=== PATIENT | male | born 1985 | race Caucasian/White ===

== ENCOUNTER 2017-12-05 05:07 | Observation (INO) | payer MEDICAID, OTHER ==
[2017-12-05] MEDS ORDERED: NS 1,000 ML IV ONE (05:25)
[2017-12-05] MEDS ORDERED: ONDANSETRON 4 MG/2 ML VIAL IVP ONE (05:25)
--- NOTE | 2017-12-05 05:26 | EDPHY ---
H & P Time Seen by Provider: 12/05/17 05:23 HPI/ROS: Chief Complaint: Abdominal pain HPI: 32-year-old male began having central abdominal pain about midnight. He has been getting progressively worse over the course the last few hours. He is having nausea and increasing vomiting as well. He has not have a history of similar pain in the past. Pain is about an 8/10 right now. Is constant. Is worse when he moves around. He has to walk kind of hunched over. No fevers or chills. No coffee grounds or blood in his emesis. No constipation, last bowel movement was yesterday. Does not have a history of abdominal surgeries. ROS: 10 point Review of Systems is negative except as noted in the HPI. PMH: None Social History: No smoking, no alcohol, no recreational drug use Family History: non-contributory Physical Exam: Gen: Awake, Alert, No Distress HEENT: Nose: no rhinorrhea Eyes: PERRLA, EOMI Mouth: Moist mucosa Neck: Supple, no JVD Chest: nontender, lungs clear to auscultation Heart: S1, S2 normal, no murmur Abd: Soft, patient is tenderness in the right lower quadrant with voluntary guarding Back: no CVA tenderness, no midline tenderness Ext: no edema, non-tender Skin: no rash Neuro: CN II-XII intact, Sensation grossly intact, Strength 5/5 in bilateral upper and lower extremities Constitutional: Initial Vital Signs Temperature (C) 36.5 C 12/05/17 05:25 Heart Rate 68 12/05/17 05:25 Respiratory Rate 18 12/05/17 05:25 Blood Pressure 110/55 L 12/05/17 05:25 O2 Sat (%) 99 12/05/17 05:25 O2 Delivery Mode Room Air Allergies/Adverse Reactions: Penicillins Allergy (Verified 12/05/17 05:24) Home Medications: Medication Instructions Recorded NK [No Known Home Meds] 12/05/17 Medical Decision Making - Diagnostics Imaging Results: CT scan is positive for acute appendicitis per Dr. Young. ED Course/Re-evaluation: Patient has acute appendicitis. I have paged Dr. Alva, general surgery. Patient states he has a penicillin allergy, however he said he had a rash when he was a child. Later on in life he has taken amoxicillin has had no problems with so he has been told by physicians he probably does not have an allergy but he continues to tell people this because he was told this as a child. Given this history I think is unlikely as a penicillin allergy. I am going to give him ceftriaxone here. - Data Points Laboratory Results: Laboratory Results 12/05/17 05:30 12/05/17 05:30 12/05/17 12/05/17 05:30 05:30 WBC 12.49 10^3/uL H 10^3/uL (3.80-9.50) RBC 4.80 10^6/uL 10^6/uL (4.40-6.38) Hgb 14.6 g/dL g/dL (13.7-17.5) Hct 43.2 % % (40.0-51.0) MCV 90.0 fL fL (81.5-99.8) MCH 30.4 pg pg (27.9-34.1) MCHC 33.8 g/dL g/dL (32.4-36.7) RDW 12.2 % % (11.5-15.2) Plt Count 209 10^3/uL 10^3/uL (150-400) MPV 9.6 fL fL (8.7-11.7) Neut % (Auto) 86.8 % H % (39.3-74.2) Lymph % (Auto) 6.4 % L % (15.0-45.0) [place] % (Auto) 5.6 % % (4.5-13.0) Eos % (Auto) 0.2 % L % (0.6-7.6) Baso % (Auto) 0.2 % L % (0.3-1.7) Nucleat RBC Rel Count 0.0 % % (0.0-0.2) Absolute Neuts (auto) 10.83 10^3/uL H 10^3/uL (1.70-6.50) Absolute Lymphs (auto) 0.80 10^3/uL L 10^3/uL (1.00-3.00) Absolute Monos (auto) 0.70 10^3/uL 10^3/uL (0.30-0.80) Absolute Eos (auto) 0.03 10^3/uL 10^3/uL (0.03-0.40) Absolute Basos (auto) 0.03 10^3/uL 10^3/uL (0.02-0.10) Absolute Nucleated RBC 0.00 10^3/uL 10^3/uL (0-0.01) Immature Gran % 0.8 % % (0.0-1.1) Immature Gran # 0.10 10^3/uL 10^3/uL (0.00-0.10) Sodium 143 mEq/L mEq/L (135-145) Potassium 4.4 mEq/L mEq/L (3.3-5.0) Chloride 103 mEq/L mEq/L (97-110) Carbon Dioxide 29 mEq/l mEq/l (22-31) Anion Gap 11 mEq/L mEq/L (8-16) BUN 18 mg/dL mg/dL (7-23) Creatinine 0.7 mg/dL mg/dL (0.7-1.3) Estimated GFR > 60 Glucose 128 mg/dL H mg/dL (70-100) Calcium 9.7 mg/dL mg/dL (8.5-10.4) Total Bilirubin 1.3 mg/dL mg/dL (0.1-1.4) AST 32 IU/L IU/L (17-59) ALT 40 IU/L IU/L (21-72) Alkaline Phosphatase 54 IU/L IU/L (38-126) Total Protein 8.1 g/dL g/dL (6.3-8.2) Albumin 4.8 g/dL g/dL (3.5-5.0) Medications Given: Discontinued Medications Sodium Chloride (Ns) 1,000 mls @ 0 mls/hr IV ONCE ONE; Wide Open PRN Reason: Protocol Stop: 12/05/17 05:26 Last Admin: 12/05/17 05:32 Dose: 1,000 mls Morphine Sulfate (Morphine) 4 mg IVP ONCE ONE Stop: 12/05/17 05:26 Last Admin: 12/05/17 05:35 Dose: 4 mg Ondansetron HCl (Zofran) 4 mg IVP EDNOW ONE Stop: 12/05/17 05:26 Last Admin: 12/05/17 05:34 Dose: 4 mg Departure - Departure Disposition: [facility] Inpatient Acute Clinical Impression: Acute appendicitis Condition: Fair Referrals: NONE *PRIMARY CARE P,. [Primary Care Provider] - As per Instructions
[2017-12-05] MEDS ORDERED: IOPAMIDOL (ISOVUE-300) 100 ML BTL ONE (05:37)
[2017-12-05 05:49] LABS: PLATELET COUNT 209 10^3/uL (150-400)
[2017-12-05] MEDS ORDERED: D5W 1/2 NS W/ 20 KCl/L 1,000 ML IV SCH ×2 (07:45→14:30)
[2017-12-05] MEDS ORDERED: D5W 1/2 NS 1,000 ML IV SCH (09:00)
--- NOTE | 2017-12-05 09:28 | PDGENHP ---
History and Physical - Chief Complaint abdominal pain with nausea and vomiting - History of Present Illness 32yo M, [place] town [place]. Last evening around 2300 had progressive abdominal pain with nausea and vomiting, this progressed through the night. Pain was initially periumbilical, now has changed to RLQ, is sharp and nonradiating. Better with IV narcotics. History Information - Allergies/Home Medication List Allergies/Adverse Reactions: Penicillins Allergy (Mild, Verified 12/05/17 07:26) Rash Home Medications: NK [No Known Home Meds] 12/05/17 [Last Taken Unknown] I have personally reviewed and updated: family history, medical history, social history, surgical history - Surgical History Additional surgical history: remote sinus surgery - Family History Positive for: non-pertinent - Social History Smoking Status: Never smoked Alcohol Use: Occasionally Additional social history: on his way to [place] for some ultramarathon Review of Systems Review of Systems: ROS: 10pt was reviewed & negative except for what was stated in HPI & below Physical Exam Physical Exam: Temp Pulse Resp BP Pulse Ox 36.8 C 61 15 129/70 H 97 12/05/17 08:29 12/05/17 08:29 12/05/17 08:29 12/05/17 08:29 12/05/17 08:29 Constitutional: no apparent distress, appears nourished, not in pain Eyes: PERRL, anicteric sclera, EOMI Ears, Nose, Mouth, Throat: moist mucous membranes, hearing normal, ears appear normal, no oral mucosal ulcers Cardiovascular: regular rate and rhythym, no murmur, rub, or gallop, No edema Respiratory: no respiratory distress, no rales or rhonchi, clear to auscultation Gastrointestinal: normoactive bowel sounds, no palpable masses, other (TTP in the RLQ, no rebound or guarding) Genitourinary: no bladder fullness, no bladder tenderness Skin: warm, normal color, no rashes or abrasions, no fluctuance, no induration, No mottled Musculoskeletal: full muscle strength, no muscle tenderness, normal joint ROM, no joint effusions Psychiatric: interacting appropriately, not anxious, not encephalopathic, thought process linear Lymph, Heme, Immunologic: no cervical LAD, no supraclavicular LAD Lab Data & Imaging Review 12/05/17 05:30 12/05/17 05:30 WBC 12.49 10^3/uL (3.80-9.50) H 12/05/17 05:30 RBC 4.80 10^6/uL (4.40-6.38) 12/05/17 05:30 Hgb 14.6 g/dL (13.7-17.5) 12/05/17 05:30 Hct 43.2 % (40.0-51.0) 12/05/17 05:30 MCV 90.0 fL (81.5-99.8) 12/05/17 05:30 MCH 30.4 pg (27.9-34.1) 12/05/17 05:30 MCHC 33.8 g/dL (32.4-36.7) 12/05/17 05:30 RDW 12.2 % (11.5-15.2) 12/05/17 05:30 Plt Count 209 10^3/uL (150-400) 12/05/17 05:30 MPV 9.6 fL (8.7-11.7) 12/05/17 05:30 Neut % (Auto) 86.8 % (39.3-74.2) H 12/05/17 05:30 Lymph % (Auto) 6.4 % (15.0-45.0) L 12/05/17 05:30 [place] % (Auto) 5.6 % (4.5-13.0) 12/05/17 05:30 Eos % (Auto) 0.2 % (0.6-7.6) L 12/05/17 05:30 Baso % (Auto) 0.2 % (0.3-1.7) L 12/05/17 05:30 Nucleat RBC Rel Count 0.0 % (0.0-0.2) 12/05/17 05:30 Absolute Neuts (auto) 10.83 10^3/uL (1.70-6.50) H 12/05/17 05:30 Absolute Lymphs (auto) 0.80 10^3/uL (1.00-3.00) L 12/05/17 05:30 Absolute Monos (auto) 0.70 10^3/uL (0.30-0.80) 12/05/17 05:30 Absolute Eos (auto) 0.03 10^3/uL (0.03-0.40) 12/05/17 05:30 Absolute Basos (auto) 0.03 10^3/uL (0.02-0.10) 12/05/17 05:30 Absolute Nucleated RBC 0.00 10^3/uL (0-0.01) 12/05/17 05:30 Immature Gran % 0.8 % (0.0-1.1) 12/05/17 05:30 Immature Gran # 0.10 10^3/uL (0.00-0.10) 12/05/17 05:30 Sodium 143 mEq/L (135-145) 12/05/17 05:30 Potassium 4.4 mEq/L (3.3-5.0) 12/05/17 05:30 Chloride 103 mEq/L (97-110) 12/05/17 05:30 Carbon Dioxide 29 mEq/l (22-31) 12/05/17 05:30 Anion Gap 11 mEq/L (8-16) 12/05/17 05:30 BUN 18 mg/dL (7-23) 12/05/17 05:30 Creatinine 0.7 mg/dL (0.7-1.3) 12/05/17 05:30 Estimated GFR > 60 12/05/17 05:30 Glucose 128 mg/dL (70-100) H 12/05/17 05:30 Calcium 9.7 mg/dL (8.5-10.4) 12/05/17 05:30 Total Bilirubin 1.3 mg/dL (0.1-1.4) 12/05/17 05:30 AST 32 IU/L (17-59) 12/05/17 05:30 ALT 40 IU/L (21-72) 12/05/17 05:30 Alkaline Phosphatase 54 IU/L (38-126) 12/05/17 05:30 Total Protein 8.1 g/dL (6.3-8.2) 12/05/17 05:30 Albumin 4.8 g/dL (3.5-5.0) 12/05/17 05:30 Visualized and Interpreted imaging results: Yes Interpretation: CT: acute appendicitis Assessment & Plan Assessment: Acute appendicitis (Acute) Plan: 32yo male with acute appendicitis - to OR for lap appy - abx in ED - RBA discussed
--- NOTE | 2017-12-05 09:48 | ASMTCMCOM ---
CM Note CM Note Notes: Chart reviewed. 32 year old male admitted via ED with abdominal pain, nausea and vomiting. CT reveals acute appendicitis. He is scheduled to go to OR later today. No needs anticipated at this time. CM availble should needs arise. Plan:Likely home independently. Date Signed: 12/05/2017 09:48 AM Electronically Signed By:Vicky Connelly RN
[2017-12-05] MEDS ORDERED: BUPIVACAINE 0.25% 30 ML SDV ONE (11:01)
[2017-12-05] MEDS ORDERED: EPINEPHrine 1 MG/ML INJ ONE (11:01)
[2017-12-05] MEDS ORDERED: MIDAZOLAM 2 MG/2 ML VIAL IVP ONE (13:14)
--- NOTE | 2017-12-05 13:14 | PDANEPAE ---
ANE History of Present Illness 32 year old male who presents with symptoms of acute appendicitis presents for lap appy. ANE Past Medical History - Cardiovascular History Hx Hypertension: No Hx Arrhythmias: No Hx Chest Pain: No Hx Coronary Artery / Peripheral Vascular Disease: No Hx CHF / Valvular Disease: No Hx Palpitations: No - Pulmonary History Hx COPD: No Hx Asthma/Reactive Airway Disease: No Hx Recent Upper Respiratory Infection: No Hx Oxygen in Use at Home: No Hx Sleep Apnea: No Sleep Apnea Screening Result - Last Documented: Negative - Endocrine History Hx Diabetes: No Hypothyroid: No Hyperthyroid: No Obesity: no - Renal History Hx Renal Disorders: No - Liver History Hx Hepatic Disorders: No - Neurological & Psychiatric Hx Hx Neurological and Psychiatric Disorders: No - Cancer History Hx Cancer: No - Congenital Disorder History Hx Congenital Disorders: No - GI History GERD: no Hx Gastrointestinal Disorders: No - Chronic Pain History Chronic Pain: No ANE Review of Systems Review of systems is: negative Review of Systems: - Exercise capacity Exercise capacity: >=4 METS ANE Patient History - Allergies Allergies/Adverse Reactions: gluten Allergy (Intermediate, Verified 12/05/17 10:16) Abdominal Pain Penicillins Allergy (Mild, Verified 12/05/17 07:26) Rash - Home Medications Home medications: home medication list seen and reviewed Home Medications: NK [No Known Home Meds] 12/05/17 [Last Taken Unknown] - NPO status NPO Status: no food or drink >8 hours NPO Since - Liquids (Date): 12/04/17 NPO Since - Liquids (Time): 20:00 NPO Since - Solids (Date): 12/04/17 NPO Since - Solids (Time): 20:00 - Anes Hx Anes Hx: no prior problems - Smoking Hx Smoking Status: Never smoked Marijuana use: No - Alcohol Use Alcohol Use: Occasionally - Family Anes Hx Family Anes Hx: neg - N/A ANE Labs/Vital Signs - Labs Result Diagrams: 12/05/17 05:30 12/05/17 05:30 - Vital Signs Vital Signs: reviewed preoperatively; see RN documention for details Blood Pressure: 125/83 Heart Rate: 65 Respiratory Rate: 16 O2 Sat (%): 98 Height: 177.8 cm Weight: 66.6 kg ANE Physical Exam - Airway Neck exam: FROM Mallampati Score: Class 2 Mouth exam: normal dental/mouth exam, dey - Pulmonary Pulmonary: no respiratory distress - Cardiovascular Cardiovascular: regular rate and rhythym - ASA Status ASA Status: I ANE Anesthesia Plan Anesthesia Plan: general endotracheal anesthesia Total IV Anesthesia: No
[2017-12-05] MEDS ORDERED: PROPOFOL 200 MG/20 ML VIAL ONE (13:24)
[2017-12-05] MEDS ORDERED: fentaNYL 100 MCG/2 ML INJ ONE ×2 (13:24→14:33)
[2017-12-05] MEDS ORDERED: ROCURONIUM 100 MG/10 ML VIAL ONE (13:36)
[2017-12-05] MEDS ORDERED: ONDANSETRON 4 MG/2 ML VIAL ONE (13:36)
[2017-12-05] MEDS ORDERED: DEXAMETHASONE 4 MG/ML VIAL ONE (13:36)
[2017-12-05] MEDS ORDERED: NALOXONE HCL 0.4 MG/ML INJ IVP PRN ×2 (13:53→13:54)
[2017-12-05] MEDS ORDERED: LR 500 ML IV PRN (13:54)
[2017-12-05] MEDS ORDERED: ONDANSETRON 4 MG/2 ML VIAL IVP PRN (13:54)
[2017-12-05] MEDS ORDERED: PROMETHAZINE HCL 25 MG/ML INJ IVP PRN (13:54)
[2017-12-05] MEDS ORDERED: fentaNYL 100 MCG/2 ML INJ IVP PRN (13:54)
[2017-12-05] MEDS ORDERED: KETOROLAC 30 MG/1 ML SDV ONE (14:03)
[2017-12-05] MEDS ORDERED: SUGAMMADEX SODIUM 200 MG/2 ML VIAL IVP ONE (14:03)
--- NOTE | 2017-12-05 14:16 | POSTOPPROG ---
Post Op Note Date of Operation: 12/05/17 Surgeon: Wilfrid Alva Anesthesiologist: Manish Anesthesia: GET(General Endotracheal) Pre-op Diagnosis: Appendicitis Post-op Diagnosis: same Procedure: laparoscopic appendectomy Findings: acute, non perforated Inf/Abcess present in the surg proc area at time of surgery?: No EBL: Minimal Total fluids administered: 500cc NS washout Specimen(s): appendix
[2017-12-05] MEDS ORDERED: ACETAMINOPHEN 325 MG TAB PO PRN (14:17)
[2017-12-05] MEDS ORDERED: oxyCODONE IR 5 MG TAB PO PRN (14:17)
--- NOTE | 2017-12-05 14:35 | POSTANESTH ---
Post Anesthetic Evaluation Cardiovascular Status: Normal, Stable, Similar to Pre-Op Cond Respiratory Status: Normal, Stable, Similar to Pre-op Cond. Level of Consciousness/Mental Status: Can Participate in Eval, Alert and Oriented Pain Control: Adequate, Prn Tx Ordered Nausea/Vomiting Control: Adequate, Prn Tx Ordered Complications Possibly Related to Anesthesia: None Noted (Patient awake, appropriate in PACU.)
--- NOTE | 2017-12-05 14:38 | GOP ---
[f rep st] OPERATIVE REPORT DATE OF OPERATION: 12/05/2017 SURGEON: Wilfrid Alva MD PHLEBOTOMY COORDINATOR: None. ANESTHESIA: General endotracheal provided by Dr. Hammond. PREOPERATIVE DIAGNOSIS: Appendicitis. POSTOPERATIVE DIAGNOSIS: Appendicitis. PROCEDURE PERFORMED: Laparoscopic appendectomy. FINDINGS: Acute indurated nonperforated appendicitis. SPECIMENS: Appendix. ESTIMATED BLOOD LOSS: 5 cc. DESCRIPTION OF PROCEDURE: The patient was greeted in the preoperative suite, and once again, risks, benefits, and alternatives were discussed. Consent was signed. He was then brought back to the oper ative suite, placed on the OR table in supine position. After SCDs were on and functioning, a [employer] time-out was performed. After successful induction of general anesthesia, the carlos hill's abdomen was prepped and draped in typical sterile fashion. I entered the abdomen via an infraumbilical cutdown through, which the Veress needle was passed. I a chieved pneumoperitoneum to 15 mmHg CO2, which was well tolerated by the patient. I then inserted a 12 mm Visiport through this and inspected the viscera. I inserted 2 additional 5 mm trocars, 1 in th e suprapubic, 1 in the left lower quadrant, both under direct visualization. I identified the retrocecal appendix by bringing the right colon anteriorly. I successfully skeleton ized the base, then amputated the appendix from the cecal base using a single fire Endo-TANYA blue load stapler. In the same fashion using a white load, amputated it from the mesoappendix. It was placed in an EndoCatch bag and removed. The staple lines were then inspected and were hemostatic. The right lower quadrant and pelvis were i rrigated with 500 cc sterile saline noting clear effluent in the suction canister. Local anesthesia was then infiltrated into all port sites, which were then removed. I desufflated the patient's abdom en. I closed the infraumbilical site with an 0-Vicryl stitch noting excellent fascial reapproximatio n. The skin was closed with Monocryl, over which Dermabond was placed. The patient was then extubat ed in the operative suite and taken to PACU in satisfactory condition. DRAINS: None. /[id number]/MODL
[2017-12-05] MEDS: ONDANSETRON 4 MG/2 ML VIAL IVP PRN ×2 (16:34→19:25)
[2017-12-05] MEDS: IBUPROFEN 600 MG TAB PO SCH (22:37)
[2017-12-06] MEDS: IBUPROFEN 600 MG TAB PO SCH (05:23)
[2017-12-06 08:55] VITALS: BP 135/85
--- NOTE | 2017-12-06 09:39 | PDDCSUM ---
Discharge Summary Discharge Summary: DISCHARGE SUMMARY Date of Admission December 05 Date of Discharge December 06 DISCHARGE DIAGNOSES -acute appendicitis HOSPITAL COURSE The patient was admitted from the ED and taken to the operating room where they underwent an uneventful laparoscopic appendectomy. They were subsequently taken to the PACU and then the general medical floor. The hospital course was uneventful, their diet was advanced to a regular diet which was well tolerated and their pain was well controlled. They were discharged home in stable condition on the morning of December 06 DISCHARGE MEDICATIONS Oxycodone as needed for pain DISPOSITION Home FOLLOW UP Patient lives in [place], will have home within the next few days. Contact information given to contact my clinic, he is welcome to follow up as needed if he is in the area
--- NOTE | 2017-12-06 10:31 | ASMTLACE ---
LACE Length of stay for Answers: 1 day current admission Acuity / Level of Answers: No Care: Did the patient have an inpatient admission? Comorbidities - select Answers: Other Notes: appendicitis all that apply # of Emergency department Answers: 1-2 visits in the last 6 months Score: 3 Date Signed: 12/06/2017 10:30 AM Electronically Signed By:Vicky Connelly RN
== END 2017-12-06 12:45 | disposition home or self-care (01) ==
LOC: F1N 08:15
PROVIDERS: ADMIT Surgery; ATTEND Surgery
PROC: 0DTJ4ZZ Resection of Appendix, Percutaneous Endoscopic Approach (ICD-10-PCS; principal; 2017-12-05 14:00)
DX: K35.80 Unspecified acute appendicitis (principal); E86.9 Volume depletion, unspecified
CPT/HCPCS: 44970; 74177; 96361; 96365; 96375; 96376; 99285; G0378; J0171; J0696; J1100; J1885; J2250; J2270; J2405; J2704; J3010; Q9967